=== PATIENT | male | born 1935 | race Caucasian/White ===

== ENCOUNTER 2022-01-05 12:07 | Inpatient (IN) | payer MEDICARE, MEDICAID, SELFPAY ==
[2022-01-05] VITALS (7 sets, daily range): BP systolic 94–102; BP diastolic 51–58; PULSE 86–100; RESP 16–26; TEMP 36.8–39.4; O2SAT 94–95; BMI 28.2
--- NOTE | ~2022-01-05 | CT_ITS ---
EXAMINATION: CT CHEST, ABDOMEN AND PELVIS WITHOUT CONTRAST CLINICAL INFORMATION: Reason for Exam source of infection COMPARISON: Chest radiograph earlier today TECHNIQUE: Multidetector volumetric imaging was performed from the thoracic inlet through the pubic symphysis without IV contrast. Sagittal and coronal reformatted images were obtained on the technologist's workstation. This CT examination was performed using dose optimization techniques as appropriate, variously including the following: *Automated exposure control *Adjustment of mA and/or kV according to patient size (this includes techniques or standardized protocols for targeted exams where dose is matched to indication/reason for exam; i.e. extremities or head) *Use of iterative reconstruction technique DLP: 531 mGy-cm for chest 1055 mGy-cm for abdomen and pelvis FINDINGS: CHEST: Lungs and Pleura: Trace pleural effusions are present, left greater than right. Scattered areas of scarring is present with thickening of both major fissures most likely representing fluid. Pleural parenchymal scarring seen at the left apex. No consolidation or suspicious lung masses are seen. Mediastinum: The heart is enlarged. Vascular calcifications are present. Calcified right hilar lymph node is present. 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 No pericardial effusion. Chest Wall/Axilla: Median sternotomy. No axillary adenopathy. ABDOMEN/PELVIS: Peritoneal Space: No significant free air or free fluid identified. Liver, Gallbladder, Biliary Tree: The liver is normal in size, shape, and attenuation. No focal hepatic lesion or biliary ductal dilatation is present. The gallbladder is unremarkable with no evidence of radiopaque gallstones, gallbladder wall thickening, or obvious pericholecystic inflammatory changes. Pancreas: Unremarkable Spleen: Unremarkable Adrenal Glands: Bilateral adrenal gland thickening is present, left slightly greater than right Kidneys and Ureters: The kidneys are normal in size, shape, and attenuation. No hydronephrosis, hydroureter, or calculi seen. There is bilateral nonspecific perinephric stranding. Bladder: Urban catheter is present in the empty bladder Gastrointestinal Tract: The small and large bowel are unremarkable. The appendix is unremarkable. Abdominal Wall: No significant hernia is appreciated. Lymph Nodes: No lymphadenopathy. Vascular: Marked calcific atherosclerotic changes present in the aorta and iliofemoral vessels.. The IVC appears normal caliber. PELVIC VISCERA: Mild BPH OSSEUS STRUCTURES: Mild degenerative changes are noted in the spine most marked at L4-L5 and L5-S1. No bony destructive lesions are seen. CT/CT abdomen pelvis wo con IMPRESSION: An occult source of infection has not been found. Incidental findings as described above. Fleischner guidelines were followed.
--- NOTE | ~2022-01-05 | US_ITS ---
EXAMINATION: US ABDOMEN LIMITED CLINICAL INFORMATION: Elevated LFTs. COMPARISON: CT abdomen pelvis earlier today TECHNIQUE: Real-time imaging of the right upper quadrant abdominal viscera. FINDINGS: PANCREAS: Obscured by bowel gas. Visualized LIVER: The liver measures 15.9 cm in greatest dimension The liver contour is normal. Parenchymal echogenicity is normal. No focal hepatic lesion. There is no intrahepatic biliary duct dilatation seen. GALLBLADDER: Gallstones are present in the gallbladder which has a slightly thickened wall at 4 mm. No fluid is seen within the wall. The gallstones are not apparent on the CT scan performed earlier today. Unfortunately, the patient could not turn to see if the stones were mobile. There was a positive Farley's sign with tenderness elicited over the gallbladder by the customer business manager. COMMON BILE DUCT: Normal in caliber measuring 0.3 cm in diameter proximally and 0.6 cm extrahepatic.. RIGHT KIDNEY: No hydronephrosis. No renal calculi or focal parenchymal lesions. The kidney measures 10.7 cm in maximum dimension. FREE FLUID: Tiny bit of fluid is seen lateral to the lower pole right kidney. US/US abdomen limited IMPRESSION: Cholelithiasis with slightly thickened gallbladder and positive Farley's sign.
--- NOTE | ~2022-01-05 | XR_ITS ---
EXAMINATION: XR CHEST CLINICAL INFORMATION: Shortness of breath. COMPARISON: 08/22/2017 chest radiograph. TECHNIQUE: Frontal view of the chest was obtained. FINDINGS: There are increased bony vascular markings with bilateral patchy infiltrates in the mid and lower lung rodriguez, right greater than left. The heart is mildly enlarged. The mediastinal structures are unremarkable. Multilevel sternotomy wires are intact. XR/XR chest 1V IMPRESSION: Mild prominence of the pulmonary vasculature is similar to the previous study may be baseline for the patient however, there has been interval development of bilateral patchy infiltrates. These could be cardiogenic however, an infectious/inflammatory process cannot be excluded.
--- NOTE | 2022-01-05 12:15 | ECG_ITS ---
Test Reason : sob Blood Pressure : / mmHG Vent. Rate : 097 BPM Atrial Rate : 097 BPM P-R Int : 214 ms QRS Dur : 154 ms QT Int : 396 ms P-R-T Axes : 071 -81 067 degrees QTc Int : 502 ms Sinus rhythm slighlt [place] prolongation Right bundle branch block Left anterior fascicular block Bifascicular block Abnormal ECG When compared with ECG of 02-MAR-2017 10:23, T wave inversion no longer evident in Anterior leads Referred By: Ladonna Chavez Electronically Signed By:DIEGO ROJAS
--- NOTE | 2022-01-05 12:17 | ED_ITS ---
HPI - SOB/Dyspnea General Chief Complaint: Fever Stated Complaint: SOB/ALTERED MENTAL STATUS Time Seen by Provider: 01/05/22 12:10 Source: patient Mode of arrival: wheelchair Limitations: no limitations History of Present Illness HPI Narrative: Patient comes to the emergency room via EMS. According to the snf facility, patient was found to be saturating in the low 80s. Patient has advanced dementia and is unable to give any history. Patient was found by EMS saturating in the mid 80s, started on a non-rebreather at 15 L, here in the emergency room patient was switched to an OxyMask, at 6 L saturating 96%. Patient's daughter is at bedside. They informed us that patient was hospitalized at [facility] the 30 of November weekend for CHF and a gallbladder infection and sepsis. Patient did not get surgery. Related Data Home Medications Medication Instructions Recorded Confirmed acetaminophen 325 mg tablet 650 mg PO Q6H PRN Pain 01/05/22 01/05/22 apixaban 5 mg tablet (Eliquis) 5 mg PO BID 01/05/22 01/05/22 ascorbic acid (vitamin C) 500 mg 500 mg PO DAILY 01/05/22 01/05/22 tablet (Vitamin C) aspirin 81 mg chewable tablet 81 mg PO DAILY 01/05/22 01/05/22 atorvastatin 40 mg tablet 40 mg PO BEDTIME 01/05/22 01/05/22 dulaglutide 1.5 mg/0.5 mL 1.5 mg subcut LOPEZ 01/05/22 01/05/22 subcutaneous pen injector (Trulicity) ergocalciferol (vitamin D2) 1,250 1,250 mcg PO QMONTH 01/05/22 01/05/22 mcg (50,000 unit) capsule ferrous sulfate 325 mg (65 mg 325 mg PO DAILY 01/05/22 01/05/22 iron) tablet,delayed release furosemide 40 mg tablet (Lasix) 40 mg PO DAILY 01/05/22 01/05/22 melatonin 3 mg tablet 3 mg PO BEDTIME 01/05/22 01/05/22 metformin 500 mg tablet 1,000 mg PO BID 01/05/22 01/05/22 mirtazapine 7.5 mg tablet 7.5 mg PO BEDTIME 01/05/22 01/05/22 omeprazole magnesium 20 mg 20 mg PO DAILY 01/05/22 01/05/22 tablet,delayed release (Prilosec OTC) polyethylene glycol 3350 17 17 g PO DAILY 01/05/22 01/05/22 gram/dose oral powder (Miralax) sennosides 8.6 mg tablet (senna) 8.6 mg PO DAILY 01/05/22 01/05/22 Allergies Allergy/AdvReac Type Severity Reaction Status Date / Time No Known Allergies Allergy Unverified 02/14/20 14:43 [No Known Allergies*] Review of Systems Review of Systems: Yes Unobtainable due to mental condition [facility] Past Medical History Medical History Alzheimer's dementia Chronic anticoagulation Chronic CHF Diabetes type 2, controlled Hypertension NSTEMI (non-ST elevated myocardial infarction) Social History Social History Advance Directives: Yes Advance Directives Information Provided: No Advance Directives on File: No Physical Exam Vital Signs: Vital Signs: Last Vital Signs Temp 100.4 F 01/05/22 16:40 Pulse 96 01/05/22 16:40 Resp 26 H 01/05/22 16:40 BP 94/58 L 01/05/22 16:40 Pulse Ox 94 01/05/22 14:05 O2 Del Method 01/05/22 14:05 O2 Flow Rate 3 01/05/22 14:05 Oxygen Flow Rate 3 01/05/22 12:14 BMI result Body Mass Index 28.2 Const: Other: Appearance: Somnolent, barely arousable Eyes: Pupils equal, round and reactive to light. ENT: Pharynx normal. Neck: Normal inspection. Neck supple. No lymph nodes noted. No crepitus CVS: Normal heart rate and rhythm. Pulses normal. Normal S1 and S2 Respiratory: No respiratory distress. Breath sounds normal. No Wheezing. No rales Abdomen: Soft and nontender. No rigidity. No distention. Skin: Warm, clammy Extremities: No lower extremity edema. No Lacerations. No Rash Neuro: Unable to participate in cranial nerve assessment. Psych: Barely arousable Course Course Course Narrative: Patient has history of CHF. Based on a bedside ultrasound, patient has cardiomyopathy, ejection fraction is approximately 30, IVC is distended. Patient's blood pressure is 102/54. Patient improved with 1 L of normal saline. Patient is septic, but we will not be giving 30 mL/kilogram. This time, patient's son and daughter are at bedside. Arrival, patient's code status is do not intubate but do resuscitate. The patient's children are discussing if they should make the patient DNR DNI versus RETARDER OPERATOR. Records from [facility] pending. 14:45, we received records from [facility], however we did not get an echocardiogram report or previous labs. Family reports that they would like to make the patient do not resuscitate and do not intubate. Dr. Acosta will be admitting the patient. Elevated troponin is likely secondary to cardiomyopathy. Chest CT and abdominal CT scan do not sh ow a clear source of infection. Urinalysis negative. Stat Echocardiogram and abdominal ultrasound are pending. We discussed the ultrasound of the gallbladder and the echocardiogram with the patient's family. After a long discussion with Dr. Acosta and the family, they decided to make the patient RETARDER OPERATOR. Case management is working with the family to obtain hospice care. I discussed the patient with Dr. Callahan, patient will be admitted with RETARDER OPERATOR care only MDM - SOB/Dyspnea Lab Data Result diagrams: 01/05/22 12:18 01/05/22 12:18 Labs: Lab Results 01/05/22 01/05/22 01/05/22 Range/Units 12:18 12:18 12:18 WBC 19.2 H (4.8-10.8) X10*3/uL RBC 4.55 L (4.60-5.80) X10*6/uL Hgb 10.5 L (14.0-18.0) g/dl Hct 35.5 L (42.0-52.0) % MCV 78.0 L (80.0-98.0) fL MCH 23.1 L (27.0-33.0) pg MCHC 29.6 L (31.0-36.0) g/dl RDW 18.0 H (11.0-16.0) % Plt Count 149 L (160-400) X10*3/uL MPV 11.3 (9.4-12.4) fL Immature Gran % (Auto) Cancelled Neut % (Auto) Cancelled Lymph % (Auto) Cancelled [place] % (Auto) Cancelled Eos % (Auto) Cancelled Baso % (Auto) Cancelled Lymph # (Auto) Cancelled [place] # (Auto) Cancelled Eos # (Auto) Cancelled Baso # (Auto) Cancelled Abs Immat Gran (auto) Cancelled Absolute Neuts (auto) Cancelled Absolute Nucleated RBC 0.080 H (0.0-0.012) X10*3/uL Nucleated RBC % (auto) 0.4 H (0.0-0.2) /100WBC Neutrophils % (Manual) 79 H (45-73) % Band Neutrophils % 17 H (3-5) % Lymphocytes % (Manual) 3 L (20-40) % Monocytes % (Manual) 1 L (2-11) % Abs Neuts (Manual) 18.4 H (2.0-8.3) X10*3/uL Lymphocytes # (Manual) 0.6 L (1.2-4.9) X10*3/uL Monocytes # (Manual) 0.2 (0.1-1.2) X10*3/uL Nucleated RBCs 1 H (0-0) /100WBC Toxic Vacuolation PRESENT Platelet Estimate SLIGHTLY DECREASED (NORMAL) Large Platelets PRESENT Plt Morphology Comment NOTED RBC Morphology NOTED Polychromasia 1+ (0-2) /OIF Ovalocytes 1+ (5-14) /OIF Acanthocytes (Spur) 2+ (3-5) /OIF Smear Path Review SEE NOTE PT 21.4 H (10.0-13.1) SEC INR 1.8 H (0.9-1.1) VBG pH (7.32-7.43) VBG pCO2 mmHg VBG pO2 mmHg VBG HCO3 (22-26) mmol/L VBG O2 Saturation % VBG Base Excess mmol/L Sodium 146 H (135-145) mmol/L Potassium 3.6 (3.3-5.1) mmol/L Chloride 104 (96-108) mmol/L Carbon Dioxide 16 L (22-29) mmol/L Anion Gap 30 H (12-20) BUN 32 H (9-16) mg/dL Creatinine 2.45 H (0.5-1.4) mg/dL Estim Creat Clear Calc 26.3 Estimated GFR 25 Random Glucose 124 H (60-115) mg/dL Lactic Acid (0.5-2.0) mmol/L Lactic Acid F/U @ 2Hr (0.5-2.0) mmol/L Calcium 9.1 (8.4-10.2) mg/dL Magnesium 1.3 L* (1.6-2.6) mg/dL Total Bilirubin 3.9 H (0.0-1.0) mg/dL Direct Bilirubin 2.7 H (0.0-0.5) mg/dL AST 581 H (5-37) U/L ALT 351 H (0-40) U/L Alkaline Phosphatase 352 H (39-117) U/L Troponin I High Sens (<3.5-35.0) ng/L B-Natriuretic Peptide (<100) pg/mL Total Protein 6.2 L (6.5-8.0) g/dL Albumin 3.6 (3.5-5.0) g/dL Urine Color Urine Appearance Urine pH (5.0-8.0) Ur Specific [place] (1.005-1.025) Urine Protein (NEG-TRACE) MG/DL Urine Glucose (UA) (NEG) MG/DL Urine Ketones (NEG) MG/DL Urine Blood (NEG) Urine Nitrite (NEG) Ur Leukocyte Esterase (NEG) Urine RBC (0) /HPF Urine WBC (0-4) /HPF Ur Squamous Epith Cells /LPF Urine Bacteria /LPF Urine Opiates Screen (Not Detect) Urine Fentanyl Screen (Not Detect) Ur Barbiturates Screen (Not Detect) Ur Phencyclidine Scrn (Not Detect) Ur Amphetamines Screen (Not Detect) U Benzodiazepines Scrn (Not Detect) Urine Cocaine Screen (Not Detect) U Marijuana (THC) Screen (Not Detect) COVID-19 (RUSSELL) (Negative) COVID-19 Clin Com 01/05/22 01/05/22 01/05/22 Range/Units 12:18 12:18 12:20 WBC (4.8-10.8) X10*3/uL RBC (4.60-5.80) X10*6/uL Hgb (14.0-18.0) g/dl Hct (42.0-52.0) % MCV (80.0-98.0) fL MCH (27.0-33.0) pg MCHC (31.0-36.0) g/dl RDW (11.0-16.0) % Plt Count (160-400) X10*3/uL MPV (9.4-12.4) fL Immature Gran % (Auto) Neut % (Auto) Lymph % (Auto) [place] % (Auto) Eos % (Auto) Baso % (Auto) Lymph # (Auto) [place] # (Auto) Eos # (Auto) Baso # (Auto) Abs Immat Gran (auto) Absolute Neuts (auto) Absolute Nucleated RBC (0.0-0.012) X10*3/uL Nucleated RBC % (auto) (0.0-0.2) /100WBC Neutrophils % (Manual) (45-73) % Band Neutrophils % (3-5) % Lymphocytes % (Manual) (20-40) % Monocytes % (Manual) (2-11) % Abs Neuts (Manual) (2.0-8.3) X10*3/uL Lymphocytes # (Manual) (1.2-4.9) X10*3/uL Monocytes # (Manual) (0.1-1.2) X10*3/uL Nucleated RBCs (0-0) /100WBC Toxic Vacuolation Platelet Estimate (NORMAL) Large Platelets Plt Morphology Comment RBC Morphology Polychromasia /OIF Ovalocytes /OIF Acanthocytes (Spur) /OIF Smear Path Review PT (10.0-13.1) SEC INR (0.9-1.1) VBG pH (7.32-7.43) VBG pCO2 mmHg VBG pO2 mmHg VBG HCO3 (22-26) mmol/L VBG O2 Saturation % VBG Base Excess mmol/L Sodium (135-145) mmol/L Potassium (3.3-5.1) mmol/L Chloride (96-108) mmol/L Carbon Dioxide (22-29) mmol/L Anion Gap (12-20) BUN (9-16) mg/dL Creatinine (0.5-1.4) mg/dL Estim Creat Clear Calc Estimated GFR Random Glucose (60-115) mg/dL Lactic Acid 11.3 H* (0.5-2.0) mmol/L Lactic Acid F/U @ 2Hr (0.5-2.0) mmol/L Calcium (8.4-10.2) mg/dL Magnesium (1.6-2.6) mg/dL Total Bilirubin (0.0-1.0) mg/dL Direct Bilirubin (0.0-0.5) mg/dL AST (5-37) U/L ALT (0-40) U/L Alkaline Phosphatase (39-117) U/L Troponin I High Sens 46283.8 H* (<3.5-35.0) ng/L B-Natriuretic Peptide 1053 H (<100) pg/mL Total Protein (6.5-8.0) g/dL Albumin (3.5-5.0) g/dL Urine Color Urine Appearance Urine pH (5.0-8.0) Ur Specific [place] (1.005-1.025) Urine Protein (NEG-TRACE) MG/DL Urine Glucose (UA) (NEG) MG/DL Urine Ketones (NEG) MG/DL Urine Blood (NEG) Urine Nitrite (NEG) Ur Leukocyte Esterase (NEG) Urine RBC (0) /HPF Urine WBC (0-4) /HPF Ur Squamous Epith Cells /LPF Urine Bacteria /LPF Urine Opiates Screen (Not Detect) Urine Fentanyl Screen (Not Detect) Ur Barbiturates Screen (Not Detect) Ur Phencyclidine Scrn (Not Detect) Ur Amphetamines Screen (Not Detect) U Benzodiazepines Scrn (Not Detect) Urine Cocaine Screen (Not Detect) U Marijuana (THC) Screen (Not Detect) COVID-19 (RUSSELL) Negative (Negative) COVID-19 Clin Com See Note 01/05/22 01/05/22 01/05/22 Range/Units 12:26 13:43 13:43 WBC (4.8-10.8) X10*3/uL RBC (4.60-5.80) X10*6/uL Hgb (14.0-18.0) g/dl Hct (42.0-52.0) % MCV (80.0-98.0) fL MCH (27.0-33.0) pg MCHC (31.0-36.0) g/dl RDW (11.0-16.0) % Plt Count (160-400) X10*3/uL MPV (9.4-12.4) fL Immature Gran % (Auto) Neut % (Auto) Lymph % (Auto) [place] % (Auto) Eos % (Auto) Baso % (Auto) Lymph # (Auto) [place] # (Auto) Eos # (Auto) Baso # (Auto) Abs Immat Gran (auto) Absolute Neuts (auto) Absolute Nucleated RBC (0.0-0.012) X10*3/uL Nucleated RBC % (auto) (0.0-0.2) /100WBC Neutrophils % (Manual) (45-73) % Band Neutrophils % (3-5) % Lymphocytes % (Manual) (20-40) % Monocytes % (Manual) (2-11) % Abs Neuts (Manual) (2.0-8.3) X10*3/uL Lymphocytes # (Manual) (1.2-4.9) X10*3/uL Monocytes # (Manual) (0.1-1.2) X10*3/uL Nucleated RBCs (0-0) /100WBC Toxic Vacuolation Platelet Estimate (NORMAL) Large Platelets Plt Morphology Comment RBC Morphology Polychromasia /OIF Ovalocytes /OIF Acanthocytes (Spur) /OIF Smear Path Review PT (10.0-13.1) SEC INR (0.9-1.1) VBG pH 7.34 (7.32-7.43) VBG pCO2 31 mmHg VBG pO2 100 mmHg VBG HCO3 17 L (22-26) mmol/L VBG O2 Saturation 98.0 % VBG Base Excess -7.5 mmol/L Sodium (135-145) mmol/L Potassium (3.3-5.1) mmol/L Chloride (96-108) mmol/L Carbon Dioxide (22-29) mmol/L Anion Gap (12-20) BUN (9-16) mg/dL Creatinine (0.5-1.4) mg/dL Estim Creat Clear Calc Estimated GFR Random Glucose (60-115) mg/dL Lactic Acid (0.5-2.0) mmol/L Lactic Acid F/U @ 2Hr (0.5-2.0) mmol/L Calcium (8.4-10.2) mg/dL Magnesium (1.6-2.6) mg/dL Total Bilirubin (0.0-1.0) mg/dL Direct Bilirubin (0.0-0.5) mg/dL AST (5-37) U/L ALT (0-40) U/L Alkaline Phosphatase (39-117) U/L Troponin I High Sens (<3.5-35.0) ng/L B-Natriuretic Peptide (<100) pg/mL Total Protein (6.5-8.0) g/dL Albumin (3.5-5.0) g/dL Urine Color YELLOW Urine Appearance HAZY Urine pH 5.5 (5.0-8.0) Ur Specific [place] 1.020 (1.005-1.025) Urine Protein 1+ H (NEG-TRACE) MG/DL Urine Glucose (UA) NEG (NEG) MG/DL Urine Ketones NEG (NEG) MG/DL Urine Blood NEG (NEG) Urine Nitrite NEG (NEG) Ur Leukocyte Esterase NEG (NEG) Urine RBC 0 (0) /HPF Urine WBC 0 (0-4) /HPF Ur Squamous Epith Cells 1+ /LPF Urine Bacteria NONE /LPF Urine Opiates Screen Not Detected (Not Detect) Urine Fentanyl Screen Not Detected (Not Detect) Ur Barbiturates Screen Not Detected (Not Detect) Ur Phencyclidine Scrn Not Detected (Not Detect) Ur Amphetamines Screen Not Detected (Not Detect) U Benzodiazepines Scrn Not Detected (Not Detect) Urine Cocaine Screen Not Detected (Not Detect) U Marijuana (THC) Screen Not Detected (Not Detect) COVID-19 (RUSSELL) (Negative) COVID-19 Clin Com 01/05/22 Range/Units 14:33 WBC (4.8-10.8) X10*3/uL RBC (4.60-5.80) X10*6/uL Hgb (14.0-18.0) g/dl Hct (42.0-52.0) % MCV (80.0-98.0) fL MCH (27.0-33.0) pg MCHC (31.0-36.0) g/dl RDW (11.0-16.0) % Plt Count (160-400) X10*3/uL MPV (9.4-12.4) fL Immature Gran % (Auto) Neut % (Auto) Lymph % (Auto) [place] % (Auto) Eos % (Auto) Baso % (Auto) Lymph # (Auto) [place] # (Auto) Eos # (Auto) Baso # (Auto) Abs Immat Gran (auto) Absolute Neuts (auto) Absolute Nucleated RBC (0.0-0.012) X10*3/uL Nucleated RBC % (auto) (0.0-0.2) /100WBC Neutrophils % (Manual) (45-73) % Band Neutrophils % (3-5) % Lymphocytes % (Manual) (20-40) % Monocytes % (Manual) (2-11) % Abs Neuts (Manual) (2.0-8.3) X10*3/uL Lymphocytes # (Manual) (1.2-4.9) X10*3/uL Monocytes # (Manual) (0.1-1.2) X10*3/uL Nucleated RBCs (0-0) /100WBC Toxic Vacuolation Platelet Estimate (NORMAL) Large Platelets Plt Morphology Comment RBC Morphology Polychromasia /OIF Ovalocytes /OIF Acanthocytes (Spur) /OIF Smear Path Review PT (10.0-13.1) SEC INR (0.9-1.1) VBG pH (7.32-7.43) VBG pCO2 mmHg VBG pO2 mmHg VBG HCO3 (22-26) mmol/L VBG O2 Saturation % VBG Base Excess mmol/L Sodium (135-145) mmol/L Potassium (3.3-5.1) mmol/L Chloride (96-108) mmol/L Carbon Dioxide (22-29) mmol/L Anion Gap (12-20) BUN (9-16) mg/dL Creatinine (0.5-1.4) mg/dL Estim Creat Clear Calc Estimated GFR Random Glucose (60-115) mg/dL Lactic Acid (0.5-2.0) mmol/L Lactic Acid F/U @ 2Hr 10.4 H* (0.5-2.0) mmol/L Calcium (8.4-10.2) mg/dL Magnesium (1.6-2.6) mg/dL Total Bilirubin (0.0-1.0) mg/dL Direct Bilirubin (0.0-0.5) mg/dL AST (5-37) U/L ALT (0-40) U/L Alkaline Phosphatase (39-117) U/L Troponin I High Sens (<3.5-35.0) ng/L B-Natriuretic Peptide (<100) pg/mL Total Protein (6.5-8.0) g/dL Albumin (3.5-5.0) g/dL Urine Color Urine Appearance Urine pH (5.0-8.0) Ur Specific [place] (1.005-1.025) Urine Protein (NEG-TRACE) MG/DL Urine Glucose (UA) (NEG) MG/DL Urine Ketones (NEG) MG/DL Urine Blood (NEG) Urine Nitrite (NEG) Ur Leukocyte Esterase (NEG) Urine RBC (0) /HPF Urine WBC (0-4) /HPF Ur Squamous Epith Cells /LPF Urine Bacteria /LPF Urine Opiates Screen (Not Detect) Urine Fentanyl Screen (Not Detect) Ur Barbiturates Screen (Not Detect) Ur Phencyclidine Scrn (Not Detect) Ur Amphetamines Screen (Not Detect) U Benzodiazepines Scrn (Not Detect) Urine Cocaine Screen (Not Detect) U Marijuana (THC) Screen (Not Detect) COVID-19 (RUSSELL) (Negative) COVID-19 Clin Com Critical Care Time Critical Care Time Critical Care Time: Yes Total Critical Care Time: 75 Attestation: I have personally provided critical care time. Time includes review of lab data, radiology results, discussion with consultants, and monitoring for potential decompensation. Intervention performed as documented. Discharge Plan Discharge Clinical Impression: Myocardiopathy, Sepsis, Congestive heart failure (CHF), Acute kidney injury, Elevated LFTs Patient Disposition: Admitted As Inpatient
[2022-01-05] MEDS: 0.9 % Sodium Chloride 1,000 ML 999 ML IVCONT (12:21)
--- NOTE | 2022-01-05 12:26 | PC.NURSE ---
holding sat above 95% on onxy mask at 3l
[2022-01-05 12:29] LABS: Venous Blood Gas Refer to POC result
[2022-01-05 12:31] LABS: VBG Base Excess -7.5 mmol/L; VBG HCO3 17 mmol/L (22-26); VBG pCO2 31 mmHg; VBG pH 7.34 (7.32-7.43); VBG pO2 100 mmHg
[2022-01-05 12:34] LABS: Hematocrit 35.5 % (42.0-52.0); Hemoglobin 10.5 g/dl (14.0-18.0); INTERNATIONAL NORM RATIO 1.8 (0.9-1.1); Mean Corpuscular HGB Conc 29.6 g/dl (31.0-36.0); Mean Corpuscular Hemoglobin 23.1 pg (27.0-33.0); Mean Platelet Volume 11.3 fL (9.4-12.4); NRBC Pct Auto 0.4 /100WBC (0.0-0.2); Platelet Count 149 X10*3/uL (160-400); Prothrombin Time 21.4 SEC (10.0-13.1); Red Blood Count 4.55 X10*6/uL (4.60-5.80); White Blood Count 19.2 X10*3/uL (4.8-10.8)
[2022-01-05 12:41] LABS: Lactic Acid 11.3 mmol/L (0.5-2.0)
[2022-01-05 12:45] LABS: COVID-19 Test Negative (Negative)
[2022-01-05 12:53] LABS: B Type Natriuretic Peptide 1053 pg/mL (<100)
[2022-01-05 12:54] LABS: Alanine Aminotransferase 351 U/L (0-40); Albumin Level 3.6 g/dL (3.5-5.0); Alkaline Phosphatase 352 U/L (39-117); Anion Gap 30 (12-20); Aspartate Amino Transferase 581 U/L (5-37); Bilirubin Direct 2.7 mg/dL (0.0-0.5); Bilirubin Total 3.9 mg/dL (0.0-1.0); Blood Urea Nitrogen 32 mg/dL (9-16); Calcium 9.1 mg/dL (8.4-10.2); Carbon Dioxide 16 mmol/L (22-29); Chloride 104 mmol/L (96-108); Creatinine Clr Calc Pharmacy 26.3; Estimated Glomerular Filt Rate 25; Glucose Random 124 mg/dL (60-115); Magnesium 1.3 mg/dL (1.6-2.6); Potassium 3.6 mmol/L (3.3-5.1); Sodium 146 mmol/L (135-145); Total Protein 6.2 g/dL (6.5-8.0)
[2022-01-05] MEDS: Piperacillin Sodium/Tazobactam 3.375 GM in 0.9 % Sodium Chloride 50 ML IV (13:02)
[2022-01-05 13:13] LABS: Acanthocytes 2+ (3-5) /OIF; Band Neutrophils Percent 17 % (3-5); Lymphocytes Absolute Manual 0.6 X10*3/uL (1.2-4.9); Lymphocytes Percent Manual 3 % (20-40); Monocytes Absolute Manual 0.2 X10*3/uL (0.1-1.2); Monocytes Percent Manual 1 % (2-11); Neutrophils Absolute Manual 18.4 X10*3/uL (2.0-8.3); Neutrophils Percent Manual 79 % (45-73); Nucleated Red Blood Cells 1 /100WBC (0-0); Ovalocytes 1+ (5-14) /OIF; RBC Morphology NOTED
[2022-01-05 13:14] LABS: Large Platelet PRESENT; Platelet Estimate SLIGHTLY DECREASED (NORMAL); Platelet Morphology Comment NOTED; Polychromasia 1+ (0-2) /OIF; Toxic Vacuolation PRESENT
[2022-01-05] MEDS: Magnesium Sulfate/H2O 2 GM/50 ML PIGGYBACK IV (13:23)
[2022-01-05] MEDS: Acetaminophen Supp 650 MG SUPP.RECT PR (13:23)
--- NOTE | 2022-01-05 13:40 | CA_ITS ---
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 Study Quality: Technically Difficult/contrast ECG Rhythm: Undetermined Conclusions: - Severely increased left ventricular cavity size. - The left ventricular systolic function is severely decreased. The calculated ejection fraction is 16% by biplane method. - Evidence suggests grade II (moderate) diastolic dysfunction. - The basal inferior segment is akinetic. - Moderately increased right ventricular cavity size. - There is mild aortic valve stenosis. - There is mild mitral valve regurgitation. Findings Procedure Information Contrast agent, definity, is being given per protocol without apparent complications. Left Ventricle Severely increased left ventricular cavity size. There is mildly increased left ventricular wall thickness. The left ventricular systolic function is severely decreased. The calculated ejection fraction is 16% by biplane method. There is severe global hypokinesis. E/E prime ratio is >15, consistent with elevated filling pressures. Evidence suggests grade II (moderate) diastolic dysfunction. Wall Motion Rest Echo Findings The basal inferior segment is akinetic. Right Ventricle Moderately increased right ventricular cavity size. There is mildly decreased right ventricular systolic function. Atria The left atrium is moderately dilated. Aortic Valve There is mild calcification of the aortic valve. There is mild aortic valve stenosis. The mean gradient is 6 mmHg. The aortic valve area is 1.61 cm2. There is no aortic valve regurgitation. Dimensionless index 0.61. Stroke volume index 24cc/m2. Mitral Valve The mitral valve appears normal. There is mild mitral valve regurgitation. There is no mitral valve stenosis. Pulmonic Valve The pulmonic valve is likely normal. Tricuspid Valve There is mild tricuspid valve regurgitation. There is no evidence of pulmonary hypertension. Great Vessels The aortic annulus, sinuses of valsalva, and asc aorta are normal in size. Small plaque is seen in the sinuses of Valsalva. Venous The inferior vena cava is mildly dilated and collapses greater than 50% with inspiration. Pericardium/Pleural There is no evidence of pericardial effusion. Prior Study Comparison Significant changes compared to prior study dated: 03/03/2017. LVEF has decreased significantly. Measurements 2D Linear Measurements IVSd: 1.24 0.6-0.9/0.6-1.0 cm LVIDd: 6.95 3.9-5.3/4.2-5.9 cm LVIDd Index: 3.14 2.4-3.2/2.2-3.1 cm/m2 LVIDs: 5.92 2.0-3.6 cm LVPWd: 1.23 0.7-1.1 cm Ao Root: 3.20 2.1-3.5 cm LA Diam: 4.90 2.7-3.8/3.0-4.0 cm LAIDs Index: 2.22 1.5-2.3 cm/m2 LV Mass: 520.20 67-162/88-224 g LV Mass Index: 235.39 43-95/49-115 g/m2 LVOT Diam: 2.00 3.0+(-)1.3 cm 2D Systolic Function EF 4C: 13.10 >55% EF 2C: 14.60 >55% EF BiP: 15.50 >55% Mitral Valve MV Pk E: 1.05 MV PK A: 0.70 MV Decel Time: 111.00 E/A: 1.50 E'Lateral: 7.07 E'Medial: 3.15 E/E' Med: 33.30 E/E' Lat: 14.90 PHT: 32.00 MVA PHT: 6.88 Decel Wheeler: 9.46 Aortic Valve AoV Pk Crispin: 1.74 AoV Mn Crispin: 1.07 AoV VTI: 0.33 AoV Pk Grad: 12.00 Aov Mn Grad: 6.00 CARLIN Cont.VTI: 1.61 LVOT LVOT Pk Crispin: 1.07 LVOT Mn Crispin: 0.70 LVOT VTI: 0.17 LVOT Pk Grad: 5.00 LVOT Mn Grad: 3.00 LVOT Diam: 2.00 LVOT Area: 3.14 Diastolic Function MV Pk E: 1.05 MV Pk A: 0.70 E/A: 1.50 E'Medial: 3.15 E/E' Med: 33.30 E' Laterial: 7.07 E/E' Lat: 14.90 Right Ventricle TAPSE (mm): 14.60 TVS' Crispin: 8.16 Tricuspid Valve TR Pk Crispin: 2.28 TR Pk Grad: 21.00 RA Press: 8.00 RVSP: 29.00 Great Vessels Aorta Ao Root-2D: 3.20 2.0-3.7 cm Ao Asc: 3.20 2.1-3.4 cm Pulmonary Valve PV Pk Crispin: 1.10 Peak PV Grad: 5.00 Updated in Other Vendor System with Status of Final Billy Fermin MD electronically signed on 01/05/2022 5:20:33 PM with status of Final
--- NOTE | 2022-01-05 13:41 | PHA.MEDREC ---
Pharmacy Consult ? Medication Reconciliation Pharmacy has completed the medication reconciliation. Patient came from [facility] with medication list. Doreen Perez, AndreyD
[2022-01-05 13:54] LABS: Appearance Urine HAZY; Color Urine YELLOW; Glucose Urine UA NEG (NEG); Leukocyte Esterase Urine NEG (NEG); Nitrite Urine NEG (NEG); PH 5.5 (5.0-8.0); UACC Culture Trigger NO; Urine Blood NEG (NEG); Urine Ketones NEG (NEG); Urine Protein 1+ MG/DL (NEG-TRACE)
[2022-01-05 14:06] LABS: RBC Urine 0 /HPF (0); Squamous Epithelial Cell Urine 1+ /LPF; WBC Urine 0 /HPF (0-4)
[2022-01-05 14:13] LABS: Amphetamine Screen Urine Not Detected (Not Detect); Barbiturates, Urine Not Detected (Not Detect); Benzodiazepines Screen Urine Not Detected (Not Detect); Cannabinoid Screen Urine Not Detected (Not Detect); Cocaine Screen Urine Not Detected (Not Detect); Fentanyl, urine Not Detected (Not Detect); Opiate Screen Urine Not Detected (Not Detect); Phencyclidine Screen Urine Not Detected (Not Detect)
[2022-01-05 14:25] LABS: Reflex Lactate? Lactic Acid Added
[2022-01-05 14:53] LABS: ~Lactic Acid-LAB USE ONLY 10.4 mmol/L (0.5-2.0)
[2022-01-05 16:35] LABS: Reflex Lactate? 2 Y
--- NOTE | 2022-01-05 19:36 | MHC.CM.PN ---
IMM 01/05. HCP at home. Son will bring in 01/06. HCP/son Seven Mccray ([phone]) and HCP/daughter Cynthia Mccray ([phone]). Pt lives at [facility] since April. Advanced dementia. 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 Pt being admitted with cardiomyopathy, sepsis, CHF, KRISTINA, elevated LFT. Referral made to [facility] and phone call to [facility] about this patient. D/C plan: Return to [facility] with Hospice. Pt will need transportation. Covid negative. Return referral placed to [facility]. Contact cards given to Family. CM to follow for d/c needs.
[2022-01-05 20:13] LABS: ~Lactic Acid-LAB USE ONLY 10.6 mmol/L (0.5-2.0)
--- NOTE | 2022-01-05 20:21 | PC.NURSE ---
Nurse to nurse Report given to HUMPHREY Rodriguez at [facility], pateint to be transported to room 476.
[2022-01-05] MEDS: Scopolamine 1.5 MG PATCH.TD.3 TRANSDERMA (20:32)
--- NOTE | 2022-01-05 20:59 | P.HPHOSP_ITS ---
History of Present Illness Date of Service: 01/05/22 Chief Complaint: SOB This is an 86- year old male with underlying Alzheimer's dementia, chronic CHF, diabetes, hypertension, and stat, presents to the hospital from long-term with acute hypoxic respiratory failure. On EMS arrival patient was found to be satting 80%. Patient was also recently seen at [facility] for possible sepsis secondary to cholecystitis but at that time patient/his family elected for no surgery. history is obtained mostly from his daughter at bedside as patient himself has dementia and unable to give much history. 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 patient is being admitted under SUPERVISOR TRAVEL TRAILER status Review of Systems Review of Systems: Yes Unobtainable due to mental condition and Unobtainable due to mental status PMFSH Medical History Alzheimer's dementia Chronic anticoagulation Chronic CHF Diabetes type 2, controlled Hypertension NSTEMI (non-ST elevated myocardial infarction) Social History Household Members: None Housing: [facility] Patient Tobacco Use Status: Never used Tobacco Use of substances other than those prescribed or required for medical reasons: No Currently Displaying Signs/Symptoms of Drug Intoxication Withdrawal: No Have you been hit, kicked, punched, or otherwise hurt by someone within the past year? If so, by whom?: No Do you feel safe in your current relationship?: No Current Relationship Is there a partner from a previous relationship who is making you feel unsafe now?: No Are you made to feel afraid or neglected: No Advance Directives: Yes Advance Directives Information Provided: No Advance Directives on File: No Advance Directives Date on File: 01/05/22 Do you have thoughts of harming others: None Do you have a plan to hurt others: No Plan Recently lost weight without trying: No service: No Current occupational status: retired [employer] Allergies Allergy/AdvReac Type Severity Reaction Status Date / Time No Known Allergies Allergy Unverified 02/14/20 14:43 [No Known Allergies*] Active Medications: Current Medications Acetaminophen (Acetaminophen 325 Mg Tablet) 650 mg PO Q6H PRN PRN Reason: Pain, Mild (Pain Scale 1-3) Lorazepam (Lorazepam 1 Mg Tablet) 1 mg SUBLINGUAL Q4H PRN PRN Reason: anxiety/restlessness Morphine Sulfate (Morphine Sulfate 4 Mg/Ml Cartridge) 4 mg IM Q4H PRN PRN Reason: Discomfort/Shortness of breath Ondansetron HCl (Ondansetron Hcl 4 Mg/2 Ml Vial) 4 mg IVPUSH Q8H PRN PRN Reason: Nausea and Vomiting Pharmacy Consult (Consult Rx Perform Med Rec) 1 each MISCELLANE ONCE PRN PRN Reason: Consult order Scopolamine (Scopolamine 1.5 Mg Patch.Td.3) 1.5 mg TRANSDERMA Q72H [facility] Last Admin: 01/05/22 20:32 Dose: 1.5 mg Sodium Chloride (0.9 % Sodium Chloride Flush 3 Ml Syringe) 3 ml IVFLUSH QSHIFT [facility] Home Medications Medication Instructions Recorded Confirmed Last Taken Type acetaminophen 325 mg tablet 650 mg PO Q6H PRN Pain 01/05/22 01/05/22 01/05/22 History apixaban 5 mg tablet (Eliquis) 5 mg PO BID 01/05/22 01/05/22 01/05/22 History ascorbic acid (vitamin C) 500 mg 500 mg PO DAILY 01/05/22 01/05/22 01/04/22 History tablet (Vitamin C) aspirin 81 mg chewable tablet 81 mg PO DAILY 01/05/22 01/05/22 01/04/22 History atorvastatin 40 mg tablet 40 mg PO BEDTIME 01/05/22 01/05/22 01/04/22 History dulaglutide 1.5 mg/0.5 mL 1.5 mg subcut LOPEZ 01/05/22 01/05/22 01/03/22 History subcutaneous pen injector (Trulicity) ergocalciferol (vitamin D2) 1,250 1,250 mcg PO QMONTH 01/05/22 01/05/22 01/02/22 History mcg (50,000 unit) capsule ferrous sulfate 325 mg (65 mg 325 mg PO DAILY 01/05/22 01/05/22 01/04/22 History iron) tablet,delayed release furosemide 40 mg tablet (Lasix) 40 mg PO DAILY 01/05/22 01/05/22 01/04/22 History melatonin 3 mg tablet 3 mg PO BEDTIME 01/05/22 01/05/22 01/04/22 History metformin 500 mg tablet 1,000 mg PO BID 01/05/22 01/05/22 01/04/22 History mirtazapine 7.5 mg tablet 7.5 mg PO BEDTIME 01/05/22 01/05/22 01/04/22 History omeprazole magnesium 20 mg 20 mg PO DAILY 01/05/22 01/05/22 01/05/22 History tablet,delayed release (Prilosec OTC) polyethylene glycol 3350 17 17 g PO DAILY 01/05/22 01/05/22 01/04/22 History gram/dose oral powder (Miralax) sennosides 8.6 mg tablet (senna) 8.6 mg PO DAILY 01/05/22 01/05/22 01/04/22 His tory Physical Exam Vital Signs and Narrative: Vital Signs: Last Vital Signs Temp 98.3 F 01/05/22 20:52 Pulse 86 01/05/22 20:52 Resp 18 01/05/22 20:52 BP 94/58 L 01/05/22 16:40 Pulse Ox 95 01/05/22 20:52 O2 Del Method 01/05/22 20:52 O2 Flow Rate 5 01/05/22 20:52 Oxygen Flow Rate 3 01/05/22 12:14 BMI result Body Mass Index 28.2 Const: Other: patient is awake, present answering questions appropriately, preoccupied with catheter General: cooperative and no acute distress Eyes: General: appearance normal, both eyes and all related structures Resp: Effort & Inspection: normal respiratory effort Auscultation: clear to auscultation bilaterally Cardio: Rate: regular rate Rhythm: regular rhythm GI: Palpation (GI): Soft to palpation Auscultation: normal bowel sounds Skin: General skin exam: no rashes or lesions noted Extrem: General: Yes normal to inspection and Yes no pedal edema Results Labs CBC and Chem 7: 01/05/22 12:18 01/05/22 12:18 Labs: Laboratory Results - last 24 hr 01/05/22 01/05/22 01/05/22 12:18 12:18 12:18 MCV 78.0 L MCH 23.1 L MCHC 29.6 L RDW 18.0 H Plt Count 149 L MPV 11.3 Immature Gran % (Auto) Cancelled Neut % (Auto) Cancelled Lymph % (Auto) Cancelled [place] % (Auto) Cancelled Eos % (Auto) Cancelled Baso % (Auto) Cancelled Lymph # (Auto) Cancelled [place] # (Auto) Cancelled Eos # (Auto) Cancelled Baso # (Auto) Cancelled Abs Immat Gran (auto) Cancelled Absolute Neuts (auto) Cancelled Absolute Nucleated RBC 0.080 H Nucleated RBC % (auto) 0.4 H Neutrophils % (Manual) 79 H Band Neutrophils % 17 H Lymphocytes % (Manual) 3 L Monocytes % (Manual) 1 L Abs Neuts (Manual) 18.4 H Lymphocytes # (Manual) 0.6 L Monocytes # (Manual) 0.2 Nucleated RBCs 1 H Toxic Vacuolation PRESENT Platelet Estimate SLIGHTLY DECREASED Large Platelets PRESENT Plt Morphology Comment NOTED RBC Morphology NOTED Polychromasia 1+ (0-2) Ovalocytes 1+ (5-14) Acanthocytes (Spur) 2+ (3-5) Smear Path Review SEE NOTE PT 21.4 H INR 1.8 H VBG pH VBG pCO2 VBG pO2 VBG HCO3 VBG O2 Saturation VBG Base Excess Anion Gap 30 H Estim Creat Clear Calc 26.3 Estimated GFR 25 Random Glucose 124 H Lactic Acid Lactic Acid F/U @ 2Hr Lactic Acid F/U @ 4Hr Calcium 9.1 Magnesium 1.3 L* Total Bilirubin 3.9 H Direct Bilirubin 2.7 H AST 581 H ALT 351 H Alkaline Phosphatase 352 H B-Natriuretic Peptide Total Protein 6.2 L Albumin 3.6 Urine Color Urine Appearance Urine pH Ur Specific [place] Urine Protein Urine Glucose (UA) Urine Ketones Urine Blood Urine Nitrite Ur Leukocyte Esterase Urine RBC Urine WBC Ur Squamous Epith Cells Urine Bacteria Urine Opiates Screen Urine Fentanyl Screen Ur Barbiturates Screen Ur Phencyclidine Scrn Ur Amphetamines Screen U Benzodiazepines Scrn Urine Cocaine Screen U Marijuana (THC) Screen COVID-19 (RUSSELL) COVID-19 Clin Com 01/05/22 01/05/22 01/05/22 12:18 12:18 12:20 MCV MCH MCHC RDW Plt Count MPV Immature Gran % (Auto) Neut % (Auto) Lymph % (Auto) [place] % (Auto) Eos % (Auto) Baso % (Auto) Lymph # (Auto) [place] # (Auto) Eos # (Auto) Baso # (Auto) Abs Immat Gran (auto) Absolute Neuts (auto) Absolute Nucleated RBC Nucleated RBC % (auto) Neutrophils % (Manual) Band Neutrophils % Lymphocytes % (Manual) Monocytes % (Manual) Abs Neuts (Manual) Lymphocytes # (Manual) Monocytes # (Manual) Nucleated RBCs Toxic Vacuolation Platelet Estimate Large Platelets Plt Morphology Comment RBC Morphology Polychromasia Ovalocytes Acanthocytes (Spur) Smear Path Review PT INR VBG pH VBG pCO2 VBG pO2 VBG HCO3 VBG O2 Saturation VBG Base Excess Anion Gap Estim Creat Clear Calc Estimated GFR Random Glucose Lactic Acid 11.3 H* Lactic Acid F/U @ 2Hr Lactic Acid F/U @ 4Hr Calcium Magnesium Total Bilirubin Direct Bilirubin AST ALT Alkaline Phosphatase B-Natriuretic Peptide 1053 H Total Protein Albumin Urine Color Urine Appearance Urine pH Ur Specific [place] Urine Protein Urine Glucose (UA) Urine Ketones Urine Blood Urine Nitrite Ur Leukocyte Esterase Urine RBC Urine WBC Ur Squamous Epith Cells Urine Bacteria Urine Opiates Screen Urine Fentanyl Screen Ur Barbiturates Screen Ur Phencyclidine Scrn Ur Amphetamines Screen U Benzodiazepines Scrn Urine Cocaine Screen U Marijuana (THC) Screen COVID-19 (RUSSELL) Negative COVID-19 Clin Com See Note 01/05/22 01/05/22 01/05/22 12:26 13:43 13:43 MCV MCH MCHC RDW Plt Count MPV Immature Gran % (Auto) Neut % (Auto) Lymph % (Auto) [place] % (Auto) Eos % (Auto) Baso % (Auto) Lymph # (Auto) [place] # (Auto) Eos # (Auto) Baso # (Auto) Abs Immat Gran (auto) Absolute Neuts (auto) Absolute Nucleated RBC Nucleated RBC % (auto) Neutrophils % (Manual) Band Neutrophils % Lymphocytes % (Manual) Monocytes % (Manual) Abs Neuts (Manual) Lymphocytes # (Manual) Monocytes # (Manual) Nucleated RBCs Toxic Vacuolation Platelet Estimate Large Platelets Plt Morphology Comment RBC Morphology Polychromasia Ovalocytes Acanthocytes (Spur) Smear Path Review PT INR VBG pH 7.34 VBG pCO2 31 VBG pO2 100 VBG HCO3 17 L VBG O2 Saturation 98.0 VBG Base Excess -7.5 Anion Gap Estim Creat Clear Calc Estimated GFR Random Glucose Lactic Acid Lactic Acid F/U @ 2Hr Lactic Acid F/U @ 4Hr Calcium Magnesium Total Bilirubin Direct Bilirubin AST ALT Alkaline Phosphatase B-Natriuretic Peptide Total Protein Albumin Urine Color YELLOW Urine Appearance HAZY Urine pH 5.5 Ur Specific [place] 1.020 Urine Protein 1+ H Urine Glucose (UA) NEG Urine Ketones NEG Urine Blood NEG Urine Nitrite NEG Ur Leukocyte Esterase NEG Urine RBC 0 Urine WBC 0 Ur Squamous Epith Cells 1+ Urine Bacteria NONE Urine Opiates Screen Not Detected Urine Fentanyl Screen Not Detected Ur Barbiturates Screen Not Detected Ur Phencyclidine Scrn Not Detected Ur Amphetamines Screen Not Detected U Benzodiazepines Scrn Not Detected Urine Cocaine Screen Not Detected U Marijuana (THC) Screen Not Detected COVID-19 (RUSSELL) COVID-19 Clin Com 01/05/22 01/05/22 14:33 19:49 MCV MCH MCHC RDW Plt Count MPV Immature Gran % (Auto) Neut % (Auto) Lymph % (Auto) [place] % (Auto) Eos % (Auto) Baso % (Auto) Lymph # (Auto) [place] # (Auto) Eos # (Auto) Baso # (Auto) Abs Immat Gran (auto) Absolute Neuts (auto) Absolute Nucleated RBC Nucleated RBC % (auto) Neutrophils % (Manual) Band Neutrophils % Lymphocytes % (Manual) Monocytes % (Manual) Abs Neuts (Manual) Lymphocytes # (Manual) Monocytes # (Manual) Nucleated RBCs Toxic Vacuolation Platelet Estimate Large Platelets Plt Morphology Comment RBC Morphology Polychromasia Ovalocytes Acanthocytes (Spur) Smear Path Review PT INR VBG pH VBG pCO2 VBG pO2 VBG HCO3 VBG O2 Saturation VBG Base Excess Anion Gap Estim Creat Clear Calc Estimated GFR Random Glucose Lactic Acid Lactic Acid F/U @ 2Hr 10.4 H* Lactic Acid F/U @ 4Hr 10.6 H* Calcium Magnesium Total Bilirubin Direct Bilirubin AST ALT Alkaline Phosphatase B-Natriuretic Peptide Total Protein Albumin Urine Color Urine Appearance Urine pH Ur Specific [place] Urine Protein Urine Glucose (UA) Urine Ketones Urine Blood Urine Nitrite Ur Leukocyte Esterase Urine RBC Urine WBC Ur Squamous Epith Cells Urine Bacteria Urine Opiates Screen Urine Fentanyl Screen Ur Barbiturates Screen Ur Phencyclidine Scrn Ur Amphetamines Screen U Benzodiazepines Scrn Urine Cocaine Screen U Marijuana (THC) Screen COVID-19 (RUSSELL) COVID-19 Clin Com Imaging Radiologist's Impressions: Impressions Chest X-Ray 01/05/22 13:02 IMPRESSION: Mild prominence of the pulmonary vasculature is similar to the previous study may be baseline for the patient however, there has been interval development of bilateral patchy infiltrates. These could be cardiogenic however, an infectious/inflammatory process cannot be excluded. Abdomen/Pelvis CT 01/05/22 14:06 IMPRESSION: An occult source of infection has not been found. Incidental findings as described above. Fleischner guidelines were followed. Chest CT 01/05/22 14:06 IMPRESSION: An occult source of infection has not been found. Incidental findings as described above. Fleischner guidelines were followed. Abdomen Ultrasound 01/05/22 15:04 IMPRESSION: Cholelithiasis with slightly thickened gallbladder and positive Farley's sign. Assessment and Plan (1) Comfort measures only status: Status: Acute (2) Myocardiopathy: Status: Acute (3) Sepsis: Status: Acute (4) Congestive heart failure (CHF): Status: Acute (5) Acute kidney injury: Status: Acute (6) Elevated LFTs: Status: Acute Plan this is an 86-year-old male with past medical history of Alzheimer's dementia, CHF, hypertension, diabetes who presents to the hospital in hypoxic respiratory failure found to have sepsis likely secondary to cholecystitis, as well as significantly elevated troponin. After discussion with family patient was made SUPERVISOR TRAVEL TRAILER will admit patient under SUPERVISOR TRAVEL TRAILER status, morphine, Ativan p.o. will as well as all other comfort measure orders have been placed given the severe of finding that and not anticipate a prolonged hospital stay for this patient Quality Stroke Does the patient have a stroke diagnosis?: No VTE Prior VTE?: No VTE Risk Level:: Medical - moderate - high VTE Device Contraindication: Treatment Not Indicated VTE Drug Contraindication: Treatment Not Indicated
[2022-01-06] MEDS: LORazepam 1 MG TABLET SUBLINGUAL (03:00)
[2022-01-06] MEDS: Morphine Sulfate 4 MG/ML CARTRIDGE IVPUSH ×3 (08:50→18:11)
[2022-01-06] MEDS: 0.9 % Sodium Chloride Flush 3 ML SYRINGE IVFLUSH ×2 (08:51→17:14)
[2022-01-06 08:56] VITALS: TEMP 36.7
--- NOTE | 2022-01-06 10:26 | HO.PM.IMPN ---
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 Was agitated last night but then had BM and now appears more comfortable. Daughter at bedside, updated. Review of Systems Review of Systems: Yes Unobtainable due to mental status Physical Exam Vital Signs: Vital Signs: Last Vital Signs Temp 98.1 F 01/06/22 08:56 Pulse 86 01/05/22 20:52 Resp 16 01/05/22 23:43 BP 94/58 L 01/05/22 16:40 Pulse Ox 95 01/05/22 20:52 O2 Del Method 01/05/22 20:52 O2 Flow Rate 5 01/05/22 20:52 Oxygen Flow Rate 3 01/05/22 12:14 BMI result Body Mass Index 28.2 Gen: terminally ill HEENT: sclera icteric Lungs: slightly labored Heart: regular rate and rhythm Abd: soft Ext: absent radial + pedal pulses Skin: jaundiced Neuro: obtunded Objective Data Active Medications Acetaminophen (Acetaminophen Supp 650 Mg Supp.Rect) 650 mg MO Q6H PRN PRN Reason: Fever Lorazepam (Lorazepam 1 Mg Tablet) 1 mg SUBLINGUAL Q4H PRN PRN Reason: anxiety/restlessness Last Admin: 01/06/22 03:00 Dose: 1 mg Documented By: ASHLIE Morphine Sulfate (Morphine Sulfate 4 Mg/Ml Cartridge) 4 mg IVPUSH Q4H PRN PRN Reason: Discomfort/Shortness of breath Last Admin: 01/06/22 08:50 Dose: 4 mg Documented By: VINCENT Ondansetron HCl (Ondansetron Hcl 4 Mg/2 Ml Vial) 4 mg IVPUSH Q8H PRN PRN Reason: Nausea and Vomiting Pharmacy Consult (Consult Rx Perform Med Rec) 1 each MISCELLANE ONCE PRN PRN Reason: Consult order Scopolamine (Scopolamine 1.5 Mg Patch.Td.3) 1.5 mg TRANSDERMA Q72H [facility] Last Admin: 01/05/22 20:32 Dose: 1.5 mg Documented By: SANDRA Sodium Chloride (0.9 % Sodium Chloride Flush 3 Ml Syringe) 3 ml IVFLUSH QSHIFT [facility] Last Admin: 01/06/22 08:51 Dose: 3 ml Documented By: VINCENT Labs CBC & Chem 7: 01/05/22 12:18 01/05/22 12:18 Labs: Laboratory Results - last 24 hr 01/05/22 01/05/22 01/05/22 12:18 12:18 12:18 MCV 78.0 L MCH 23.1 L MCHC 29.6 L RDW 18.0 H Plt Count 149 L MPV 11.3 Immature Gran % (Auto) Cancelled Neut % (Auto) Cancelled Lymph % (Auto) Cancelled Cook % (Auto) Cancelled Eos % (Auto) Cancelled Baso % (Auto) Cancelled Lymph # (Auto) Cancelled Cook # (Auto) Cancelled Eos # (Auto) Cancelled Baso # (Auto) Cancelled Abs Immat Gran (auto) Cancelled Absolute Neuts (auto) Cancelled Absolute Nucleated RBC 0.080 H Nucleated RBC % (auto) 0.4 H Neutrophils % (Manual) 79 H Band Neutrophils % 17 H Lymphocytes % (Manual) 3 L Monocytes % (Manual) 1 L Abs Neuts (Manual) 18.4 H Lymphocytes # (Manual) 0.6 L Monocytes # (Manual) 0.2 Nucleated RBCs 1 H Toxic Vacuolation PRESENT Platelet Estimate SLIGHTLY DECREASED Large Platelets PRESENT Plt Morphology Comment NOTED RBC Morphology NOTED Polychromasia 1+ (0-2) Ovalocytes 1+ (5-14) Acanthocytes (Spur) 2+ (3-5) Smear Path Review SEE NOTE PT 21.4 H INR 1.8 H VBG pH VBG pCO2 VBG pO2 VBG HCO3 VBG O2 Saturation VBG Base Excess Anion Gap 30 H Estim Creat Clear Calc 26.3 Estimated GFR 25 Random Glucose 124 H Lactic Acid Lactic Acid F/U @ 2Hr Lactic Acid F/U @ 4Hr Calcium 9.1 Magnesium 1.3 L* Total Bilirubin 3.9 H Direct Bilirubin 2.7 H AST 581 H ALT 351 H Alkaline Phosphatase 352 H B-Natriuretic Peptide Total Protein 6.2 L Albumin 3.6 Urine Color Urine Appearance Urine pH Ur Specific [place] Urine Protein Urine Glucose (UA) Urine Ketones Urine Blood Urine Nitrite Ur Leukocyte Esterase Urine RBC Urine WBC Ur Squamous Epith Cells Urine Bacteria Urine Opiates Screen Urine Fentanyl Screen Ur Barbiturates Screen Ur Phencyclidine Scrn Ur Amphetamines Screen U Benzodiazepines Scrn Urine Cocaine Screen U Marijuana (THC) Screen COVID-19 ([facility]) COVID-19 Clin Com 01/05/22 01/05/22 01/05/22 12:18 12:18 12:20 MCV MCH MCHC RDW Plt Count MPV Immature Gran % (Auto) Neut % (Auto) Lymph % (Auto) Cook % (Auto) Eos % (Auto) Baso % (Auto) Lymph # (Auto) Cook # (Auto) Eos # (Auto) Baso # (Auto) Abs Immat Gran (auto) Absolute Neuts (auto) Absolute Nucleated RBC Nucleated RBC % (auto) Neutrophils % (Manual) Band Neutrophils % Lymphocytes % (Manual) Monocytes % (Manual) Abs Neuts (Manual) Lymphocytes # (Manual) Monocytes # (Manual) Nucleated RBCs Toxic Vacuolation Platelet Estimate Large Platelets Plt Morphology Comment RBC Morphology Polychromasia Ovalocytes Acanthocytes (Spur) Smear Path Review PT INR VBG pH VBG pCO2 VBG pO2 VBG HCO3 VBG O2 Saturation VBG Base Excess Anion Gap Estim Creat Clear Calc Estimated GFR Random Glucose Lactic Acid 11.3 H* Lactic Acid F/U @ 2Hr Lactic Acid F/U @ 4Hr Calcium Magnesium Total Bilirubin Direct Bilirubin AST ALT Alkaline Phosphatase B-Natriuretic Peptide 1053 H Total Protein Albumin Urine Color Urine Appearance Urine pH Ur Specific [place] Urine Protein Urine Glucose (UA) Urine Ketones Urine Blood Urine Nitrite Ur Leukocyte Esterase Urine RBC Urine WBC Ur Squamous Epith Cells Urine Bacteria Urine Opiates Screen Urine Fentanyl Screen Ur Barbiturates Screen Ur Phencyclidine Scrn Ur Amphetamines Screen U Benzodiazepines Scrn Urine Cocaine Screen U Marijuana (THC) Screen COVID-19 ([facility]SELL) Negative COVID-19 Clin Com See Note 01/05/22 01/05/22 01/05/22 12:26 13:43 13:43 MCV MCH MCHC RDW Plt Count MPV Immature Gran % (Auto) Neut % (Auto) Lymph % (Auto) Cook % (Auto) Eos % (Auto) Baso % (Auto) Lymph # (Auto) Cook # (Auto) Eos # (Auto) Baso # (Auto) Abs Immat Gran (auto) Absolute Neuts (auto) Absolute Nucleated RBC Nucleated RBC % (auto) Neutrophils % (Manual) Band Neutrophils % Lymphocytes % (Manual) Monocytes % (Manual) Abs Neuts (Manual) Lymphocytes # (Manual) Monocytes # (Manual) Nucleated RBCs Toxic Vacuolation Platelet Estimate Large Platelets Plt Morphology Comment RBC Morphology Polychromasia Ovalocytes Acanthocytes (Spur) Smear Path Review PT INR VBG pH 7.34 VBG pCO2 31 VBG pO2 100 VBG HCO3 17 L VBG O2 Saturation 98.0 VBG Base Excess -7.5 Anion Gap Estim Creat Clear Calc Estimated GFR Random Glucose Lactic Acid Lactic Acid F/U @ 2Hr Lactic Acid F/U @ 4Hr Calcium Magnesium Total Bilirubin Direct Bilirubin AST ALT Alkaline Phosphatase B-Natriuretic Peptide Total Protein Albumin Urine Color YELLOW Urine Appearance HAZY Urine pH 5.5 Ur Specific [place] 1.020 Urine Protein 1+ H Urine Glucose (UA) NEG Urine Ketones NEG Urine Blood NEG Urine Nitrite NEG Ur Leukocyte Esterase NEG Urine RBC 0 Urine WBC 0 Ur Squamous Epith Cells 1+ Urine Bacteria NONE Urine Opiates Screen Not Detected Urine Fentanyl Screen Not Detected Ur Barbiturates Screen Not Detected Ur Phencyclidine Scrn Not Detected Ur Amphetamines Screen Not Detected U Benzodiazepines Scrn Not Detected Urine Cocaine Screen Not Detected U Marijuana (THC) Screen Not Detected COVID-19 ([facility]LL) COVID-19 Clin [facility] 01/05/22 01/05/22 14:33 19:49 MCV MCH MCHC RDW Plt Count MPV Immature Gran % (Auto) Neut % (Auto) Lymph % (Auto) Cook % (Auto) Eos % (Auto) Baso % (Auto) Lymph # (Auto) Cook # (Auto) Eos # (Auto) Baso # (Auto) Abs Immat Gran (auto) Absolute Neuts (auto) Absolute Nucleated RBC Nucleated RBC % (auto) Neutrophils % (Manual) Band Neutrophils % Lymphocytes % (Manual) Monocytes % (Manual) Abs Neuts (Manual) Lymphocytes # (Manual) Monocytes # (Manual) Nucleated RBCs Toxic Vacuolation Platelet Estimate Large Platelets Plt Morphology Comment RBC Morphology Polychromasia Ovalocytes Acanthocytes (Spur) Smear Path Review PT INR VBG pH VBG pCO2 VBG pO2 VBG HCO3 VBG O2 Saturation VBG Base Excess Anion Gap Estim Creat Clear Calc Estimated GFR Random Glucose Lactic Acid Lactic Acid F/U @ 2Hr 10.4 H* Lactic Acid F/U @ 4Hr 10.6 H* Calcium Magnesium Total Bilirubin Direct Bilirubin AST ALT Alkaline Phosphatase B-Natriuretic Peptide Total Protein Albumin Urine Color Urine Appearance Urine pH Ur Specific [place] Urine Protein Urine Glucose (UA) Urine Ketones Urine Blood Urine Nitrite Ur Leukocyte Esterase Urine RBC Urine WBC Ur Squamous Epith Cells Urine Bacteria Urine Opiates Screen Urine Fentanyl Screen Ur Barbiturates Screen Ur Phencyclidine Scrn Ur Amphetamines Screen U Benzodiazepines Scrn Urine Cocaine Screen U Marijuana (THC) Screen COVID-19 ([facility]SELL) COVID-19 Clin Com Microbiology Microbiology Results: Microbiology 01/05/22 12:40 Blood Culture - Preliminary Blood - Venous Prelim: GNR Gram Stain only Prelim: GPC Gram Stain only 01/05/22 12:18 Blood Culture - Preliminary Blood - Venous Prelim: GNR Gram Stain only Prelim: GPC Gram Stain only Assessment and Plan (1) Comfort measures only status: Status: Acute Plan hospital d#2 86yo M with Alzheimer's dementia, CHF, DM2, HTN, and recent hospitalization at [facility] for sepsis due to cholecystitis for which he did not get surgery; sent in from [facility] SNF with hypoxia; found to have severe sepsis due to GB source with polymicrobial bacteremia suggesting perforation; also NSTEMI. 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 - continue IV morphine prn pain/dyspnea - change SL lorazepam [pt is not awake enough to take] to IV midazolam prn anxiety/agitation - scopalamine patch for secretion management - daughter updated at bedside Quality Stroke Does the patient have a stroke diagnosis?: No VTE Prior VTE?: No VTE Risk Level:: Medical - moderate - high VTE Device Contraindication: Treatment Not Indicated VTE Drug Contraindication: Treatment Not Indicated
[2022-01-06 15:08] VITALS: RESP 21
--- NOTE | 2022-01-06 15:11 | MHC.CM.PN ---
per rounds pt doing poorly
--- NOTE | 2022-01-06 23:17 | PM.EVENT ---
Event Note Date of Service: 01/06/22 Event Note: Received message from nurse the patient . On exam patient has no pulse, no respiratory effort, pupils are fixed, dilated, and nonreactive. Patient at 23:05
--- NOTE | 2022-01-06 23:24 | PC.NURSE ---
organ bank called and declined patient, spoke with HUEY, [phone]
--- NOTE | 2022-01-07 08:19 | P.DN_ITS ---
Discharge Sum: Prov Provider Primary care physician: Rigo Ku MD Admitting clinician: Britton Paez Attending physician on admission: Britton Paez Discharge Sum: Diag PCOD Cause of : Severe sepsis Contributing Factors (1) Acute cholecystitis: (2) Polymicrobial sepsis: (3) Bacteremia: (4) Acute kidney injury: (5) NSTEMI (non-ST elevated myocardial infarction): Discharge Sum: Summary Date and Time Date of admission: 01/05/22 19:04 Date of : 01/06/22 Time of : 23:05 Summary Details: from admission history and physical by hospitalist Britton Paez MD, 01/05/22: This is an 86- year old male with underlying Alzheimer's dementia, chronic CHF, diabetes, hypertension, and stat, presents to the hospital from snf with acute hypoxic respiratory failure.? On EMS arrival patient was found to be satting 80%.? Patient was also recently seen at [facility] for possible sepsis secondary to cholecystitis but at that time? patient/his family elected for no surgery.? ? history is obtained mostly from his daughter at bedside as patient himself has dementia and unable to give much history. ? On arrival to the ED patient was found to have a temp of 103 degrees, respiratory rate of 26, blood pressure 102/54? labs were found to be significant for WBC of 19.2,? with a left shift, BUN of 32, creatinine of 2.45? with a baseline of 1, elevated lactic acid of 11, troponin of 25,000, BNP of 1000, ?this case was extensively discussed with his family at bedside by ED physician and ICU attending,? 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 He on 01/06/22 at 23:05. Additional Data Confirmation of as documented by pronouncing clinician: no pulse, no respirations, no heart sounds and pupils fixed and dilated Family: contacted Attending physician: Nataliia Callahan MD
== END 2022-01-06 23:45 | disposition expired | DRG 951 ==
LOC: HO.ED 15:04 → HO.EDOVER 19:31 → HO.IMC 19:38
PROVIDERS: Admitting Provider Internal Medicine; Emergency Provider Emergency Medicine; PCP Family Medicine; Visit Provider Family Medicine
DX: Z51.5 Encounter for palliative care (principal); A41.9 Sepsis, unspecified organism; R65.20 Severe sepsis without septic shock; I21.4 Non-ST elevation (NSTEMI) myocardial infarction; J96.01 Acute respiratory failure with hypoxia; N17.9 Acute kidney failure, unspecified; I42.9 Cardiomyopathy, unspecified; K81.0 Acute cholecystitis; I50.9 Heart failure, unspecified; E11.9 Type 2 diabetes mellitus without complications; G30.9 Alzheimer's disease, unspecified; I11.0 Hypertensive heart disease with heart failure; F02.80 Dementia in other diseases classified elsewhere, unspecified severity, without behavioral disturbance, psychotic disturbance, mood disturbance, and anxiety; Z20.822 Contact with and (suspected) exposure to COVID-19; Z79.01 Long term (current) use of anticoagulants; Z79.82 Long term (current) use of aspirin; Z79.899 Other long term (current) drug therapy
CPT/HCPCS: 36415; 71045; 71250; 74176; 76705; 80048; 80076; 80307; 81001; 82803; 83605; 83735; 83880; 84484; 85007; 85027; 85610; 87040; 87077; 87186; 87205; 87635; 93005; 93306; 96361; 96365; 96375; 99285; J2270; J2543; J3475; Q9957